=== PATIENT | female | born 1950 | race American Indian/Alaskan Native ===

== ENCOUNTER 2016-08-08 11:09 | Outpatient (CLI) | payer OTHER ==
--- NOTE | 2016-08-08 14:13 | Mammography Report ---
BILATERAL DIGITAL SCREENING MAMMOGRAM with CAD: 08/08/16 11:09:00 CLINICAL: Routine screening. COMPARISON:06/05/15 FINDINGS: The breasts are almost entirely fatty. No mass, architectural distortion or suspicious calcifications. IMPRESSION: No mammographic evidence of malignancy. BI-RADS CATEGORY: 1 - - Negative RECOMMENDATION: Routine mammographic screening in one year. COMMENT: Patient follow-up letters are generated by our [employer] application.
== END 2016-08-08 11:10 | disposition home or self-care (01) ==
LOC: SPVWC 11:09
PROVIDERS: ATTEND Obstetrics & Gynecology
DX: Z12.31 Encounter for screening mammogram for malignant neoplasm of breast (principal)
CPT/HCPCS: 77067; G0202

== ENCOUNTER 2016-08-25 10:04 | Outpatient (CLI) | payer OTHER ==
--- NOTE | 2016-08-25 10:42 | XRay Report ---
LEFT SHOULDER: Pain. Routine views demonstrate normal bony and soft tissue structures with normal joint alignment of the shoulder. IMPRESSION: Normal study.
== END 2016-08-25 10:05 | disposition home or self-care (01) ==
LOC: SPVIMAG 10:04
PROVIDERS: ATTEND Obstetrics & Gynecology
DX: M25.512 Pain in left shoulder (principal)